=== PATIENT | female | born 1985 | race Caucasian/White ===

== ENCOUNTER 2021-02-01 16:18 | Emergency (ER) | payer BC, SELFPAY ==
[2021-02-01 16:36] VITALS: BP 141/77; PULSE 67; RESP 20; TEMP 36.7; O2SAT 100
--- NOTE | 2021-02-01 17:19 | ED.URI ---
HPI - URI/Sore Throat General Chief Complaint: Upper Respiratory Infection Stated Complaint: sob/congestion/ear pain Source: patient and RN notes reviewed Mode of arrival: ambulatory History of Present Illness HPI Narrative: This is a 35-year-old female that presented to urgent care with complaints of allergy symptoms swollen lymph nodes, sneezing, coughing, runny nose, postnasal dripping and nausea and shortness of breath that started on Thursday. According to patient she has a history of having sinusitis. Patient notes that she took [id number] allergy medication with no relief. The patient denies SOB, CP, palpitation, extremity numbness, lightheadedness, dizziness, constipation, diarrhea, chills, or fever. Rapid Covid complete and negative Related Data Home Medications Medication Instructions Recorded Confirmed citalopram 40 mg PO DAILY 02/01/21 02/01/21 fluticasone propionate [Flonase] 50 mcg INTRANASAL DAILY 02/01/21 02/01/21 loratadine-pseudoephedrine 1 tablet PO DAILY 02/01/21 02/01/21 [Claritin-D 24 Hour] norethindrone-e.estradiol-iron 1 tablet PO DAILY 02/01/21 02/01/21 [Aurovela 24 Fe] Allergies Allergy/AdvReac Type Severity Reaction Status Date / Time azithromycin Allergy Unknown Other Verified 02/01/21 16:31 ciprofloxacin Allergy Unknown Other Verified 02/01/21 16:31 Review of Systems Review of Systems: A 14 organ system Review of Systems was performed and pertinent positives included in the HPI, otherwise remaining ROS is negative. [facility] Family History Family History Father Family history of coronary artery disease Hypertension Mother No family history of cardiovascular disease Grandparent Diabetes mellitus Other Family history of malignant neoplasm of breast Social History Social History Smoking status: Never smoker Second hand tobacco smoke exposure: No Alcohol intake: never Exam Narrative: GENERAL: This is a well-nourished, well-developed patient, in no apparent distress. HEAD: normocephalic, atraumatic. EYES: PERRL. Sclera clear/white. Vision is grossly intact. EARS: External ears normal, auditory canals clear and without drainage, TMs normal edematous. Hearing grossly intact. NOSE: External nose normal with no obvious nasal discharge, nares without redness, no rhinorrhea. THROAT: Mucous membranes moist, posterior pharynx clear. NECK: Neck supple, non-tender without lymphadenopathy, masses or thyromegaly. CARDIOVASCULAR: Regular rate and rhythm without murmurs, gallops, or rubs. RESPIRATORY: Clear to auscultation. Breath sounds equal bilaterally. No wheezes, rales, or rhonchi. GASTROINTESTINAL: Abdomen soft, non-tender, nondistended. Bowel sounds are active. No hepato-splenomegaly, or palpable masses. No guarding. SKIN: warm, intact with no suspicious lesions or rash, good texture and turgor. NEURO: awake, alert, and oriented to person, place and time. There were no obvious focal neurologic abnormalities. Steady gait EXTREMITIES: Normal range of motion. No edema. No calf tenderness. Negative Homans sign bilaterally. BACK: Nontender without deformity or crepitance. No flank tenderness. Course Course Emergency Course: Patient will discharge home with Augmentin for the treatment of otitis media and sinusitis. She will also be prescribed for albuterol inhaler for shortness of breath Vital Signs Vital signs: Vital Signs Temperature 98.0 F 02/01/21 16:36 Pulse Rate 67 02/01/21 16:36 Respiratory Rate 20 02/01/21 16:36 Blood Pressure 141/77 H 02/01/21 16:36 Pulse Oximetry 100 02/01/21 16:36 Temperature 98.0 F 02/01/21 16:36 Pulse Rate 67 02/01/21 16:36 Respiratory Rate 20 02/01/21 16:36 Blood Pressure 141/77 H 02/01/21 16:36 Pulse Oximetry 100 02/01/21 16:36 MDM - URI/Sore Throat Differential Diagnosis Differential
== END 2021-02-01 17:29 | disposition home or self-care (01) ==
PROVIDERS: Emergency Provider Nurse Practitioner; PCP Internal Medicine
DX: J01.11 Acute recurrent frontal sinusitis (principal); H66.001 Acute suppurative otitis media without spontaneous rupture of ear drum, right ear; Z20.828 Contact with and (suspected) exposure to other viral communicable diseases
CPT/HCPCS: 87426; 99213; C9803; G0463